=== PATIENT | female | born 1940 | race Caucasian/White ===

== ENCOUNTER 2016-10-29 09:48 | Emergency (ER) | payer MEDICARE, MEDICAID ==
[~2016-10-29] VITALS: Ht 157.5 cm; Wt 46.3 kg
[~2016-10-29 09:48] MED LIST: ALBU1.25 NEB; Acetaminophen PO; CEPH-570 PO; ENOX30DI SUBCUT; Lorazepam IV; MAGN400O4 PO; MENT71OI TOP; ONDA4VIA30 IV; PANT40TA2 PO; TRAZ-144 PO
[2016-10-29] MEDS ORDERED: LEVO500T15 PO (10:03)
--- NOTE | 2016-10-29 10:05 | NUR ---
dr moreno at the bedside for eval and exam.
--- NOTE | 2016-10-29 10:29 | NUR ---
Patient discharged to home in stable conditon. Written and verbal after care instructions given. Patient verbalizes understanding of instructions.
[2016-10-29 10:31] VITALS: BP 148/73
== END 2016-10-29 10:35 | disposition home or self-care (01) ==
LOC: ER 09:48
DX: F32.9 Major depressive disorder, single episode, unspecified (principal); Z88.6 Allergy status to analgesic agent; Z85.3 Personal history of malignant neoplasm of breast; Z90.710 Acquired absence of both cervix and uterus
CPT/HCPCS: A4663